=== PATIENT | female | born 1970 | race African-American/Black ===

== ENCOUNTER 2020-02-15 12:46 | Emergency (ER) | payer MEDICAID, OTHER ==
[~2020-02-15] VITALS: Ht 172.7 cm; Wt 123.0 kg
[~2020-02-15 12:46] MED LIST: HYDR-1348
[2020-02-15 13:06] VITALS: BP 152/81
[2020-02-15] MEDS ORDERED: KETOROLAC 30MG/ML VIAL IM ONE (22:30)
== END 2020-02-16 00:31 | disposition home or self-care (01) ==
LOC: ER 12:46
DX: M79.621 Pain in right upper arm (principal); M79.89 Other specified soft tissue disorders
CPT/HCPCS: 93971; 96372; 99284; J1885